=== PATIENT | male | born 2000 | race Caucasian/White ===

== ENCOUNTER → 2019-05-08 07:07 | Outpatient (BNVA) | payer MEDICAID, SELFPAY | PROVIDERS: PCP Nurse Practitioner Family; Visit Provider Psychiatry & Neurology Psychiatry | DX: F90.2 Attention-deficit hyperactivity disorder, combined type (principal) | CPT/HCPCS: 99214 ==

== ENCOUNTER → 2019-06-05 07:38 | Outpatient (BNVA) | payer MEDICAID, SELFPAY | PROVIDERS: PCP Nurse Practitioner Family; Visit Provider Psychiatry & Neurology Psychiatry | DX: F90.2 Attention-deficit hyperactivity disorder, combined type (principal) | CPT/HCPCS: 99213 ==

== ENCOUNTER → 2019-07-17 07:28 | Outpatient (BNVA) | payer MEDICAID, SELFPAY | PROVIDERS: PCP Nurse Practitioner Family; Visit Provider Psychiatry & Neurology Psychiatry | DX: F90.2 Attention-deficit hyperactivity disorder, combined type (principal) | CPT/HCPCS: 99213 ==

== ENCOUNTER 2019-09-20 19:05 | Emergency (ER) | payer MEDICAID, SELFPAY ==
[2019-09-20 19:17] VITALS: BP 114/65; PULSE 79; RESP 18; TEMP 36.7; O2SAT 98; BMI 23.0
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
== END 2019-09-20 20:12 | disposition home or self-care (01) ==
PROVIDERS: Emergency Provider Nurse Practitioner Family; PCP Nurse Practitioner Family
DX: S60.221A Contusion of right hand, initial encounter (principal); X58.XXXA Exposure to other specified factors, initial encounter
CPT/HCPCS: 12345; 73130; 99281; 99282

== ENCOUNTER 2019-09-23 10:40 | Emergency (ER) | payer MEDICAID, SELFPAY ==
[2019-09-23 10:44] VITALS: BMI 22.3
[2019-09-23 10:48] VITALS: BP 130/81; PULSE 106; RESP 16; TEMP 36.4; O2SAT 99
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
--- NOTE | 2019-09-23 11:07 | CT_ITS ---
WS: [id number] CT ABDOMEN AND PELVIS WITH CONTRAST HISTORY: RLQ abdominal pain, nausea, diarrhea TECHNIQUE: Imaging performed of the abdomen and pelvis with IV contrast. Single phase imaging of the abdomen. Coronal and sagittal reformats are submitted. All CT scans at [facility] use at least one of these dose optimization techniques: automated exposure control; mA and/or kV adjustment per patient size (includes targeted exams where dose is matched to clinical indication); or iterativ e reconstruction. IV CONTRAST: Omnipaque 300; 95 mL IV. Oral contrast: No DLP: 381.53 mGy.cm COMPARISON: None available. Lower thorax: Lung bases are clear. Heart is normal size. No hiatal hernia. Liver/biliary system: Normal size with no intrahepatic dilatation. Gallbladder: Normal. No gallstones or wall thickening. No pericholecystic fluid. Pancreas: Poorly visualized with mild motion artifact. Spleen: Normal. Adrenal glands: Normal. Right kidney: Mild fullness in the RIGHT renal pelvis. There is soft tissue thickening in the lower p ole and very mild dilatation of the renal pelvis and proximal ureter. Normal enhancement otherwise. Left kidney: Interpolar 9 mm cyst. Aorta: Normal. Lymphadenopathy: None. Free fluid: None. GI tract: Normal appendix. Moderate fecal retention and constipation. No wall thickening or obstructi on. Mild fluid distention of small bowel loops. Abdominal wall: Unremarkable abdominal wall. No hernia. Pelvis: Normal. Bones: Unremarkable. CT/CT abdomen pelvis w con* [id number] IMPRESSION: 1. Normal appendix. 2. Increased soft tissue thickening lower pole RIGHT kidney may be an area of infection or inflammation. There is no obstruction. Consider follow-up renal ul trasound for better evaluation of the renal pelvis. 3. No free fluid. 4. Mild constipation.
[2019-09-23 11:11] LABS: Basophils % 0.6 %; Eosinophils # 0.1 10^3/uL (0.0-0.8); Eosinophils % 1.8 %; Hematocrit 45.1 % (42.0-52.0); Hemoglobin 14.2 g/dL (11.7-16.6); Lymphocytes # 1.5 10^3/uL (1.5-6.5); Lymphocytes % 22.2 %; Mean Corpuscular HGB Conc 31.5 g/dL (30.0-36.0); Mean Corpuscular Volume 95.3 fL (80-94); Mean Platelet Volume 10.9 fL (7.4-10.4); Monocytes # 0.5 10^3/uL (0.2-0.9); Monocytes % 7.6 %; Neutrophils # 4.47 10^3/uL (1.8-8.0); Neutrophils % 67.6 %; Nucleated Red Blood Cells % 0 %; Platelet Count 222 10^3/cmm (130-400); Red Blood Count 4.73 10^6/uL (4.1-5.3); Red Cell Distribution Width 12.3 % (12.1-15.1); White Blood Count 6.6 10^3/uL (4.5-13.0)
[2019-09-23] MEDS: sodium chloride 0.9% 1,000 ML 999 ML IV (11:24)
[2019-09-23 11:28] LABS: Alanine Aminotransferase 13 U/L (0-41); Albumin Level 4.5 g/dL (3.5-5.2); Alkaline Phosphatase 86 IU/L (40-130); Aspartate Amino Transferase 18 U/L (0-40); Blood Urea Nitrogen 9 mg/dL (6-20); Calcium 9.3 mg/dL (8.5-10.5); Carbon Dioxide 26 mmol/L (22-29); Chloride 101 mmol/L (98-107); Globulin 2.9 g/dL (1.3-4.6); Glomerular Filtration Rate 123.2 mL/min (90-130); Glucose 84 mg/dL (65-115); Lipase 15 U/L (13-60); Osmolality Calculated 277 mOsm/kg (285-295); Sodium 136 mmol/L (136-145); Total Bilirubin 0.2 mg/dL (0.15-1.2); Total Protein 7.4 g/dL (6.6-8.7)
--- NOTE | 2019-09-23 11:33 | PC.NURSE ---
Pt to CT at this time via stretcher accompanied by CT staff x1
[2019-09-23] MEDS: iohexol 300 mg/mL 100 mL Btl IV (11:37)
[2019-09-23 11:46] LABS: Add Urine Microscopic? NO
[2019-09-23 11:54] LABS: Bilirubin Urine Neg (NEGATIVE); Blood Urine Neg (Negative); Glucose Urine UA Norm (Normal); Ketones Urine Negative (Negative); Leukocyte Esterase Urine Negative (Negative); Nitrate Urine Negative (Negative); Protein Urine Neg (Negative); Urine Appearance Clear (CLEAR); Urine Color Yellow (Yellow); Urobilinogen Urine Norm (Negative); pH Urine 6 (5-7)
[2019-09-23 13:06] VITALS: BP 126/75; PULSE 83; RESP 20; O2SAT 100
== END 2019-09-23 13:07 | disposition home or self-care (01) ==
PROVIDERS: Emergency Provider Physician Assistant; PCP Nurse Practitioner Family
DX: K59.00 Constipation, unspecified (principal)
CPT/HCPCS: 12345; 36415; 74177; 80053; 81003; 83690; 85025; 96360; 99283; J7030; Q9967

== ENCOUNTER → 2019-10-10 07:51 | Outpatient (BNVA) | payer MEDICAID, SELFPAY | PROVIDERS: PCP Nurse Practitioner Family; Visit Provider Psychiatry & Neurology Psychiatry | DX: F43.12 Post-traumatic stress disorder, chronic (principal); F90.2 Attention-deficit hyperactivity disorder, combined type | CPT/HCPCS: 99213 ==

== ENCOUNTER → 2019-12-26 07:17 | Outpatient (BNVA) | payer MEDICAID, SELFPAY | PROVIDERS: PCP Nurse Practitioner Family; Visit Provider Psychiatry & Neurology Psychiatry | DX: F90.2 Attention-deficit hyperactivity disorder, combined type (principal); Z79.899 Other long term (current) drug therapy | CPT/HCPCS: 99213 ==

== ENCOUNTER → 2020-02-19 11:38 | Outpatient (BNVA) | payer MEDICAID, SELFPAY | PROVIDERS: PCP Nurse Practitioner Family; Visit Provider Psychiatry & Neurology Psychiatry | DX: F90.2 Attention-deficit hyperactivity disorder, combined type (principal); F41.1 Generalized anxiety disorder; F43.12 Post-traumatic stress disorder, chronic | CPT/HCPCS: 99213 ==

== ENCOUNTER → 2020-04-05 07:56 | Outpatient (BNVA) | payer MEDICAID, SELFPAY | PROVIDERS: PCP Nurse Practitioner Family; Visit Provider Psychiatry & Neurology Psychiatry | DX: F90.2 Attention-deficit hyperactivity disorder, combined type (principal) | CPT/HCPCS: 99214 ==

== ENCOUNTER → 2020-04-29 14:01 | Outpatient (BNVA) | payer MEDICAID, SELFPAY | PROVIDERS: PCP Nurse Practitioner Family; Visit Provider Psychiatry & Neurology Psychiatry | DX: F90.2 Attention-deficit hyperactivity disorder, combined type (principal) | CPT/HCPCS: 99214 ==

== ENCOUNTER → 2020-05-27 08:02 | Outpatient (BNVA) | payer MEDICAID, SELFPAY | PROVIDERS: PCP Nurse Practitioner Family; Visit Provider Psychiatry & Neurology Psychiatry | DX: F90.2 Attention-deficit hyperactivity disorder, combined type (principal); R10.9 Unspecified abdominal pain | CPT/HCPCS: 99214 ==

== ENCOUNTER → 2020-06-17 08:19 | Outpatient (BNVA) | payer MEDICAID, SELFPAY | PROVIDERS: PCP Nurse Practitioner Family; Visit Provider Psychiatry & Neurology Psychiatry | DX: F90.2 Attention-deficit hyperactivity disorder, combined type (principal) | CPT/HCPCS: 99212 ==

== ENCOUNTER 2020-06-30 21:38 | Emergency (ER) | payer MEDICAID, SELFPAY ==
[2020-06-30 21:59] VITALS: BP 132/73; PULSE 66; RESP 18; TEMP 36.6; O2SAT 98; BMI 22.4
--- NOTE | 2020-06-30 22:25 | ED_ITS ---
HPI - General Adult General: Chief complaint: General Medical Stated complaint: AFTER 4 DAYS IN SUN BEGAN FEELING SICK, FAINTING Time Seen by Provider: 06/30/20 22:24 History of Present Illness: HPI narrative: Patient states he might of overdone it this last weekend and at work. Been working on the heat said he has been drinking plenty of fluid. He said he just felt weak since Sunday not have much energy feeling faint has not passed out. Denies any other problems. Quit taking his ADHD medicines about a month ago he said his been the happiest person over the last month and not having mental health problems. Onset (ago): day(s) Associated symptoms: Reports no associated symptoms; Deny chest pain, dyspnea, headache(s), nausea, rash or vomiting Review of Systems Narrative: Weakness Const: Denies: fever(s), chills or body aches Eyes: Denies: change in vision or blurry vision ENMT: Denies: throat pain or nasal congestion Card: Denies: chest pain or dyspnea on exertion Resp: Denies: dyspnea, productive cough or non-productive cough GI: Denies: abdominal pain, nausea or vomiting : Denies: difficulty urinating Musc: Denies: extremity pain Skin/Breast: Denies: rash Neuro: Denies: headache(s) Psych: Denies: anxiety or depression Nas/Lymph: Denies: easy bruising [facility] ED PFSH: Medical History (Updated 06/30/20 @ 22:52 by FERNANDO Balderas) Attention-deficit hyperactivity disorder, combined type Post-traumatic stress disorder, chronic PTSD (post-traumatic stress disorder) Physical Exam Const: COMMON NORMALS: no acute distress, average body habitus and patient or iented x3 HENMT: COMMON NORMALS: normocephalic HEAD & SCALP: normal to inspection and normocephalic FACE & SINUS: normal facial exam Eye: COMMON NORMALS: conjunctivae normal GENERAL EYE: appearance normal, both eyes and all related structures CONJUNCTIVA: Yes conjunctivae normal Neck/C-Spine: COMMON NORMALS: no JVD Chest: COMMONS NORMALS: normal inspection of the chest Resp: COMMON NORMALS: normal respiratory effort and clear to auscultation bilaterally AUSCULTATION: clear to auscultation bilaterally Cardio: COMMON NORMALS: no JVD, regular rate and regular rhythm RATE: regular rate RHYTHM: regular rhythm GI: COMMON NORMALS: Normal to inspection, nondistended, normoactive bowel sounds present Extremity: COMMON NORMALS: normal to inspection and full ROM Neuro: COMMON NORMALS: patient oriented x3 Course Vital Signs: Vital signs: Vital Signs Temperature 97.8 F 06/30/20 21:59 Pulse Rate 66 06/30/20 21:59 Respiratory Rate 18 06/30/20 21:59 Blood Pressure 132/73 06/30/20 21:59 Pulse Oximetry 98 06/30/20 21:59 Discharge Plan Discharge Patient Disposition: Home Clinical Impression: Cervical radiculopathy Condition: Stable Prescriptions: New prednisone 20 mg tablet 20 mg PO DAILY Qty: 7 RF: 0 Celebrex 100 mg capsule 100 mg PO BID Qty: 20 RF: 0 No Action azithromycin [Zithromax Z-Guillermo] 250 mg tablet See Rx Instructions PO .COMPLEX Qty: 6 RF: 0 promethazine-DM 6.25-15 mg/5 mL syrup 5 ml PO Q6H PRN (Reason: cough) 7 Days Qty: 118 RF: 0 loratadine [Claritin] 10 mg tablet 10 mg PO DAILY 30 Days Qty: 30 RF: 5 Discharge Orders: Discharge ED (Routine); Ordered 06/30/20 Ordered By: Chris Toribio Discharge Diet: Usual diet Discharge Activity: Increase activity as tolerated Patient Instructions: Cervical Radiculopathy (ED) Activity Restrictions/Additional Instructions: Follow-up with medical provider as directed. Take medications as prescribed. Return to the ER or your medical provider if condition worsens. Please read and understand discharge instructions. If any questions ask please. Alternate moist heat and ice to neck and shoulder area. Coding Level of Care Code ED Civilian Technician for Kiki Fwd Exam Comprehensive
[2020-06-30 23:19] LABS: Basophils # 0.1 10^3/uL (0.0-0.1); Basophils % 0.8 %; Eosinophils # 0.3 10^3/uL (0.0-0.8); Eosinophils % 3.3 %; Hematocrit 41.8 % (42.0-52.0); Hemoglobin 13.3 g/dL (11.7-16.6); Lymphocytes # 2.4 10^3/uL (1.5-6.5); Lymphocytes % 32.1 %; Mean Corpuscular HGB Conc 31.8 g/dL (30.0-36.0); Mean Corpuscular Hemoglobin 29.8 pg (28.0-34.0); Mean Corpuscular Volume 93.7 fL (80-94); Mean Platelet Volume 11.1 fL (7.4-10.4); Monocytes # 0.8 10^3/uL (0.2-0.9); Monocytes % 10.2 %; Neutrophils # 3.98 10^3/uL (1.8-8.0); Neutrophils % 53.3 %; Nucleated Red Blood Cells % 0 %; Platelet Count 209 10^3/cmm (130-400); Red Blood Count 4.46 10^6/uL (4.1-5.3); Red Cell Distribution Width 13.1 % (12.1-15.1); White Blood Count 7.5 10^3/uL (4.5-13.0)
[2020-06-30 23:33] LABS: Anion Gap 12.9 (5-19); Blood Urea Nitrogen 12 mg/dL (6-20); Calcium 8.8 mg/dL (8.5-10.5); Carbon Dioxide 26 mmol/L (22-29); Chloride 105 mmol/L (98-107); Glomerular Filtration Rate 123.2 mL/min (90-130); Glucose 80 mg/dL (65-115); Osmolality Calculated 289 mOsm/kg (285-295); Potassium 3.9 mmol/L (3.5-5.1); Sodium 140 mmol/L (136-145)
[2020-07-01 00:18] VITALS: BP 130/61; PULSE 59; RESP 15; TEMP 36.6; O2SAT 97
== END 2020-07-01 00:21 | disposition home or self-care (01) ==
PROVIDERS: Emergency Provider Nurse Practitioner Family
DX: M54.12 Radiculopathy, cervical region (principal); R53.1 Weakness
CPT/HCPCS: 80048; 85025; 99282

== ENCOUNTER → 2020-08-12 07:31 | Outpatient (BNVA) | payer MEDICAID, SELFPAY | PROVIDERS: PCP Nurse Practitioner; Visit Provider Psychiatry & Neurology Psychiatry | DX: F90.2 Attention-deficit hyperactivity disorder, combined type (principal) | CPT/HCPCS: 99212 ==

== ENCOUNTER 2020-08-30 15:35 | Emergency (ER) | payer MEDICAID, SELFPAY ==
[2020-08-30 16:43] VITALS: BP 108/62; PULSE 118; RESP 18; TEMP 36.7; O2SAT 96; BMI 23.7
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
--- NOTE | 2020-08-30 20:37 | PC.NURSE ---
pt states hes in pain. pt very 'hyper' trying to 'distract himself' from the pain.
[2020-08-30] MEDS: HYDROcodone-acetaminophen 5-325 mg Tablet 1 TAB PO (20:42)
[2020-08-30 21:34] VITALS: BP 121/74; PULSE 98; RESP 18; TEMP 36.8; O2SAT 99
== END 2020-08-30 21:00 | disposition home or self-care (01) ==
PROVIDERS: Emergency Provider Nurse Practitioner Family; PCP Nurse Practitioner
DX: S43.52XA Sprain of left acromioclavicular joint, initial encounter (principal); F17.200 Nicotine dependence, unspecified, uncomplicated; V19.9XXA Pedal cyclist (driver) (passenger) injured in unspecified traffic accident, initial encounter
CPT/HCPCS: 70450; 72125; 73030; 99283

== ENCOUNTER → 2020-09-28 07:29 | Outpatient (BNVA) | payer MEDICAID, SELFPAY | PROVIDERS: PCP Nurse Practitioner; Visit Provider Psychiatry & Neurology Psychiatry | DX: F90.2 Attention-deficit hyperactivity disorder, combined type (principal); G47.20 Circadian rhythm sleep disorder, unspecified type | CPT/HCPCS: 99214 ==

== ENCOUNTER → 2020-10-21 08:06 | Outpatient (BNVA) | payer MEDICAID, SELFPAY | PROVIDERS: PCP Nurse Practitioner; Visit Provider Psychiatry & Neurology Psychiatry | DX: F43.11 Post-traumatic stress disorder, acute (principal); F90.2 Attention-deficit hyperactivity disorder, combined type; G47.20 Circadian rhythm sleep disorder, unspecified type | CPT/HCPCS: 99214 ==

== ENCOUNTER → 2021-11-17 12:06 | Outpatient (BNVA) | payer MEDICAID, SELFPAY | PROVIDERS: PCP Nurse Practitioner; Visit Provider Nurse Practitioner Family | DX: Z11.52 Encounter for screening for COVID-19 (principal); J06.9 Acute upper respiratory infection, unspecified; R05.9 Cough, unspecified; J40 Bronchitis, not specified as acute or chronic | CPT/HCPCS: 80053 ==

== ENCOUNTER → 2021-11-25 13:07 | Outpatient (BNVA) | payer MEDICAID, SELFPAY | PROVIDERS: PCP Nurse Practitioner; Visit Provider Nurse Practitioner Family | DX: J40 Bronchitis, not specified as acute or chronic (principal); R05.9 Cough, unspecified | CPT/HCPCS: 71046 ==

== ENCOUNTER 2022-05-27 13:07 | Emergency (ER) | payer MEDICAID, SELFPAY ==
[2022-05-27 13:10] VITALS: BP 132/81; PULSE 78; RESP 21; TEMP 36.7; O2SAT 100; BMI 22.3
--- NOTE | 2022-05-27 13:34 | XRR_ITS ---
PROCEDURE INFORMATION: Exam: XR Abdomen Exam date and time: 05/27/2022 1:44 PM Age: 21 years old Clinical indication: Nausea and vomiting; Additional info: N/v pain TECHNIQUE: Imaging protocol: Radiologic exam of the abdomen. Views: 2 Views. Upright and supine views. COMPARISON: CT abdomen pelvis w con* [id number] 09/23/2019 11:27 AM FINDINGS: Gastrointestinal tract: Normal. No bowel dilation. Intraperitoneal space: Normal. No free air. Bones/joints: Unremarkable for age. XR/XR abdomen min 2V [id number] IMPRESSION: No acute finding.
--- NOTE | 2022-05-27 13:35 | W.ED.NAVMDI ---
HPI - Nausea/Vomiting/Diarrhea General: Chief complaint: General Medical Stated complaint: N/V Time Seen by Provider: 05/27/22 13:12 Source: patient Mode of arrival: EMS Limitations: no limitations History of Present Illness: Patient is a 21-year-old male who presents to ED today with a complaint of nausea and vomiting over the past 3 years. He states he will have nausea and vomiting every other day and states he will vomit up to 17 times in a day. He is reporting epigastric discomforts on these days as well. He states on days that he is asymptomatic (again states this is only every other day over the past 3 years) he will be javier of spades stating that he feels great and eats and drinks normally without any discomforts. He reportedly has never sought any form of examination for this stating that he does not like hospitals. No hematemesis. He states he continues to have normal bowel movements. No fevers. Denies alcohol and illicit drug use. He does smoke marijuana daily. Also some report of him accidentally taking a 25mg metoprolol thinking it was a medication to treat nausea. MD elicited complaint: nausea, vomiting and abdominal pain Associated nausea: Yes Associated abdominal pain: Yes Location of pain: Epigastric Pain consistency: intermittent Exacerbating factors: eating Relieving factors: none Associated symtoms: Reports nausea; Denies chest pain, dizziness, dysuria, fatigue, headache(s) or malaise Review of Systems Const: Denies: fever(s), chills, body aches, fatigue or malaise ENMT: Denies: throat pain or odynophagia Card: Denies: chest pain Resp: Denies: dyspnea GI: Reports: abdominal pain, nausea and vomiting; Denies: hematemesis, coffee ground emesis, diarrhea, GI cramping, change in bowel habits, hematochezia or melena : Denies: flank pain, dysuria or hematuria Musc: Denies: neck pain, back pain, extremity pain or joint pain Skin/Breast: Denies: rash Neuro: Denies: headache(s) or dizziness [facility] ED PFSH: Medical History Attention-deficit hyperactivity disorder, combined type Post-traumatic stress disorder, chronic PTSD (post-traumatic stress disorder) Surgical History History of myringotomy Family History Mother Diabetes Hypertension Grandmother COPD (chronic obstructive pulmonary disease) Hypertension Social History Smoking and tobacco status: never smoked Alcohol intake: current Alcohol intake frequency: holidays/special occasions only Adopted: No Lives independently: Yes Household members: significant other Marital status: Single Highest education level completed: High School Graduate service: No Current occupational status: unemployed Current gender identity: Male Special saroj needs: No Physical Exam Const: COMMON NORMALS: no acute distress, average body habitus, patient oriented x3, no limitations, healthy appearing, alert and well nourished HENMT: COMMON NORMALS: normocephalic and atraumatic HEAD & SCALP: normal to inspection, normocephalic and atraumatic Neck/C-Spine: COMMON NORMALS: full ROM, no lymphadenopathy, supple and no meningeal signs Chest: COMMONS NORMALS: normal inspection of the chest and normal palpation of entire chest wall Resp: COMMON NORMALS: normal respiratory effort and clear to auscultation bilaterally AUSCULTATION: clear to auscultation bilaterally Cardio: COMMON NORMALS: regular rate and regular rhythm RATE: regular rate RHYTHM: regular rhythm GI: COMMON NORMALS: Normal to inspection, nondistended, normoactive bowel sounds present, Soft to palpation, No hepatosplenomegaly present and no masses INSPECTION: Yes normal to inspection AUSCULTATION: Yes normoactive bowel sounds PALPATION: Yes Soft to palpation, Yes Tenderness to palpation present (GI) (mild epigastric tenderness), No Guarding due to palpation present (GI), No Rigid due to palpation and Yes No hepatosplenomegaly present : COMMON NORMALS: Yes no CVA tenderness BLADDER/KIDNEY EXAM: Yes no CVA tenderness Back/Pelvis: COMMON NORMALS: no CVA tenderness and thoracic and lumbar spine normal to inspection Extremity: COMMON NORMALS: normal to inspection GENERAL: Yes normal exam except as noted Neuro: ANA LUISA COMA SCALE: document [facility]CS findings Ana Luisa coma scale eye opening: Spontaneous [place] coma scale verbal response: Orientated [place] coma scale motor response: Obey commands Ana Luisa coma scale total score: 15 COMMON NORMALS: patient oriented x3 SENSORIUM/ORIENTATION: Yes alert MENINGEAL SIGNS: Yes no meningeal signs Skin: COMMON NORMALS: no rashes or lesions noted GENERAL SKIN EXAM: no rashes or lesions noted Course Vital Signs: Vital signs: Vital Signs Temperature 98.1 F 05/27/22 13:10 Pulse Rate 78 05/27/22 13:10 Respiratory Rate 21 H 05/27/22 13:10 Blood Pressure 132/81 05/27/22 13:10 Pulse Oximetry 100 05/27/22 13:10 Oxygen Delivery Me thod Room Air 05/27/22 13:10 MDM - Nausea/Vomiting/Diarrhea Medical Decision Making Patient did feel like GI cocktail helped here. Ultimately patient's symptoms have been present, according to him, for 3 years now. His vital signs are normal. Blood work overall is unremarkable. XR of his abdomen is normal. I do not see any need for emergent CT imaging based on length of symptoms. Recommend he follow-up with his primary care provider. We will go ahead and place a referral for general surgery/GI for further evaluation of chronic abdominal pains, nausea, and vomiting. Return to ED precautions given. Lab Data 05/27/22 13:45 05/27/22 13:45 Radiology Impressions Abdomen X-Ray 05/27/22 13:34 IMPRESSION: No acute finding. Laboratory Results WBC 13.6 10^3/uL (4.0-10.0) H 05/27/22 13:45 RBC 5.12 10^6/uL (4.1-5.3) 05/27/22 13:45 Hgb 15.3 g/dL (11.7-16.6) 05/27/22 13:45 Hct 46.3 % (42.0-52.0) 05/27/22 13:45 MCV 90.4 fl (80-94) 05/27/22 13:45 MCH 29.9 pg (28.0-34.0) 05/27/22 13:45 MCHC 33.0 g/dL (30.0-36.0) 05/27/22 13:45 RDW 12.3 % (12.1-15.1) 05/27/22 13:45 Plt Count 213 10^3/cmm (130-400) 05/27/22 13:45 MPV 10.8 fL (7.4-10.4) H 05/27/22 13:45 Neut % (Auto) 91.9 % 05/27/22 13:45 Lymph % (Auto) 3.3 % 05/27/22 13:45 [place] % (Auto) 4.0 % 05/27/22 13:45 Eos % (Auto) 0.1 % 05/27/22 13:45 Baso % (Auto) 0.3 % 05/27/22 13:45 Neut # (Auto) 12.53 10^3/uL (1.8-7.7) H 05/27/22 13:45 Lymph # (Auto) 0.5 10^3/uL (0.8-4.8) L 05/27/22 13:45 [place] # (Auto) 0.5 10^3/uL (0.2-0.9) 05/27/22 13:45 Eos # (Auto) 0.0 10^3/uL (0.0-0.8) 05/27/22 13:45 Baso # (Auto) 0.0 10^3/uL (0.0-0.1) 05/27/22 13:45 Nucleated RBC % (auto) 0 % 05/27/22 13:45 Nucleated RBCs # 0.0 /100WBC 05/27/22 13:45 Sodium 130 mmol/L (136-145) L 05/27/22 13:45 Potassium 3.9 mmol/L (3.5-5.1) 05/27/22 13:45 Chloride 96 mmol/L (98-107) L 05/27/22 13:45 Carbon Dioxide 24 mmol/L (22-29) 05/27/22 13:45 Anion Gap 13.9 (5-19) 05/27/22 13:45 BUN 14 mg/dL (6-20) 05/27/22 13:45 Creatinine 1.0 mg/dL (0.7-1.2) 05/27/22 13:45 GFR Calculation 93.4 mL/min (90-130) 05/27/22 13:45 Glucose 89 mg/dL (65-115) 05/27/22 13:45 Calculated Osmolality 270 mOsm/kg (285-295) L 05/27/22 13:45 Calcium 9.2 mg/dL (8.5-10.5) 05/27/22 13:45 Total Bilirubin 0.6 mg/dL (0.15-1.2) 05/27/22 13:45 AST 19 U/L (0-40) 05/27/22 13:45 ALT 23 U/L (0-41) 05/27/22 13:45 Alkaline Phosphatase 55 U/L (40-130) 05/27/22 13:45 Total Protein 7.4 g/dL (6.6-8.7) 05/27/22 13:45 Albumin 4.7 g/dL (3.5-5.2) 05/27/22 13:45 Globulin 2.7 g/dL (1.3-4.6) 05/27/22 13:45 Lipase 18 U/L (13-60) 05/27/22 13:45 Urine Color Yellow (Yellow) 05/27/22 13:54 Urine Appearance Clear (CLEAR) 05/27/22 13:54 Urine pH 9 (5-7) H 05/27/22 13:54 Ur Specific [place] 1.010 (1.005-1.030) 05/27/22 13:54 Urine Protein Neg (Negative) 05/27/22 13:54 Urine Glucose (UA) Norm (Normal) 05/27/22 13:54 Urine Ketones Negative (Negative) 05/27/22 13:54 Urine Blood Neg (Negative) 05/27/22 13:54 Urine Nitrate Negative (Negative) 05/27/22 13:54 Urine Bilirubin Neg (Negative) 05/27/22 13:54 Prot Sulfosalicylic Acd Negative (Negative) 05/27/22 13:54 Urine Urobilinogen Norm mg/dL (Negative) 05/27/22 13:54 Ur Leukocyte Esterase Negative (Negative) 05/27/22 13:54 Discharge Plan Discharge Patient Disposition: Home Clinical Impression: Chronic vomiting Condition: Stable Prescriptions: New ondansetron 4 mg tablet,disintegrating 4 mg PO Q8H PRN (Reason: nausea and vomiting) Qty: 14 0RF No Action mupirocin 2 % ointment 1 applic topical BID 10 Days Qty: 15 0RF Rx Instructions: apply to sores amoxicillin-pot clavulanate 875-125 mg tablet 1 tab PO BID 10 Days Qty: 20 0RF Discharge Orders: Discharge ED (Routine); Ordered 05/27/22 Ordered By: Joi Kwok Referrals: Imani Monsivais, COMPUTER SYSTEMS AUDITOR-C [Primary Care Provider] - Activity Restrictions/Additional Instructions: As we discussed I will have case management set you up with a general surgery/GI appointment for further evaluation of your chronic nausea, vomiting, and abdominal pains. You may use the prescription as needed for nausea/vomiting. Coding Level of Care Code ED Sensitometrist for Kiki Marie
[2022-05-27 14:02] LABS: Add Urine Microscopic? NO; Charge for UA Resulting for Rev
[2022-05-27] MEDS: lidocaine 2% viscous 15 ML, aluminum-mag hydrox-simethicon 30 ML, sucralfate oral liq 1 GM PO (14:02)
[2022-05-27 14:04] LABS: Basophils % 0.3 %; Eosinophils % 0.1 %; Hematocrit 46.3 % (42.0-52.0); Hemoglobin 15.3 g/dL (11.7-16.6); Lymphocytes # 0.5 10^3/uL (0.8-4.8); Lymphocytes % 3.3 %; Mean Corpuscular Hemoglobin 29.9 pg (28.0-34.0); Mean Corpuscular Volume 90.4 fl (80-94); Mean Platelet Volume 10.8 fL (7.4-10.4); Monocytes # 0.5 10^3/uL (0.2-0.9); Neutrophils # 12.53 10^3/uL (1.8-7.7); Neutrophils % 91.9 %; Nucleated Red Blood Cells % 0 %; Platelet Count 213 10^3/cmm (130-400); Red Blood Count 5.12 10^6/uL (4.1-5.3); Red Cell Distribution Width 12.3 % (12.1-15.1); White Blood Count 13.6 10^3/uL (4.0-10.0)
[2022-05-27 14:17] LABS: Bilirubin Urine Neg (Negative); Blood Urine Neg (Negative); Glucose Urine UA Norm (Normal); Ketones Urine Negative (Negative); Leukocyte Esterase Urine Negative (Negative); Nitrate Urine Negative (Negative); Protein Urine Neg (Negative); Sulfosalicylic Acid Urine Negative (Negative); Urine Appearance Clear (CLEAR); Urine Color Yellow (Yellow); Urobilinogen Urine Norm (Negative); pH Urine 9 (5-7)
[2022-05-27 14:32] LABS: Alanine Aminotransferase 23 U/L (0-41); Albumin Level 4.7 g/dL (3.5-5.2); Alkaline Phosphatase 55 U/L (40-130); Anion Gap 13.9 (5-19); Aspartate Amino Transferase 19 U/L (0-40); Blood Urea Nitrogen 14 mg/dL (6-20); Calcium 9.2 mg/dL (8.5-10.5); Carbon Dioxide 24 mmol/L (22-29); Chloride 96 mmol/L (98-107); Globulin 2.7 g/dL (1.3-4.6); Glomerular Filtration Rate 93.4 mL/min (90-130); Glucose 89 mg/dL (65-115); Lipase 18 U/L (13-60); Osmolality Calculated 270 mOsm/kg (285-295); Potassium 3.9 mmol/L (3.5-5.1); Sodium 130 mmol/L (136-145); Total Bilirubin 0.6 mg/dL (0.15-1.2); Total Protein 7.4 g/dL (6.6-8.7)
[2022-05-27] MEDS: LORazepam 2 mg/mL INJ 1 mL 0.5 MG IVP (16:02)
[2022-05-27] MEDS: metoclopramide 5 mg/mL SDV 2 mL 10 MG IVP (16:03)
[2022-05-27 16:45] VITALS: BP 112/65
--- NOTE | 2022-05-29 11:43 | DCPLANNER ---
Addendum entered by Mellisa Granados 07/03/22 11:28: Patient had a follow up appointment at general surgery - patient did not attend appointment. Addendum entered by Mellisa Granados 06/02/22 09:38: Patient has a follow up appointment scheduled for Monday, June 27, 2022 at 9:[address] Ng at general surgery. Original Note: web manager had message to schedule a follow up appointment for patient with general surgery. web manager sent patients information to the front office staff at general surgery. Patients information will be printed and reviewed. Clinic will call patient with appointment information.
== END 2022-05-27 16:47 | disposition home or self-care (01) ==
PROVIDERS: Emergency Provider Physician Assistant; PCP Nurse Practitioner
DX: R11.10 Vomiting, unspecified (principal)
CPT/HCPCS: 74019; 80053; 81003; 83690; 85025; 96374; 96375; 99284; J2060; J2765

== ENCOUNTER 2022-11-19 16:17 | Emergency (ER) | payer MEDICAID, SELFPAY ==
[2022-11-19 16:22] VITALS: BP 120/76; PULSE 73; RESP 16; TEMP 36.5; O2SAT 97; BMI 20.9
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
[2022-11-19] MEDS: ketorolac 60 mg/2 mL INJ IM (17:52)
[2022-11-19] MEDS: orphenadrine 30 mg/mL Inj 2 mL 60 MG IM (17:54)
== END 2022-11-19 20:15 | disposition home or self-care (01) ==
PROVIDERS: Emergency Provider Physician Assistant; PCP Nurse Practitioner
DX: S00.83XA Contusion of other part of head, initial encounter (principal); S00.03XA Contusion of scalp, initial encounter; S20.219A Contusion of unspecified front wall of thorax, initial encounter; Y04.2XXA Assault by strike against or bumped into by another person, initial encounter; Y07.040 Female partner, current, perpetrator of maltreatment and neglect
CPT/HCPCS: 70486; 71250; 96372; 99284; J1885; J2360

== ENCOUNTER → 2023-03-29 13:43 | Outpatient (BNVA) | payer MEDICAID, SELFPAY | PROVIDERS: PCP Nurse Practitioner; Visit Provider Family Medicine | DX: M79.641 Pain in right hand (principal) | CPT/HCPCS: 73130 ==

== ENCOUNTER 2023-10-26 09:55 | Inpatient (IN) | payer MEDICARE, SELFPAY ==
[2023-10-26 09:56] VITALS: BP 143/84; PULSE 89; RESP 17; TEMP 36.5; O2SAT 99; BMI 22.3
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
[2023-10-26 10:18] LABS: Basophils % 0.8 %; Eosinophils # 0.1 10^3/uL (0.0-0.8); Eosinophils % 1.5 %; Hematocrit 42.4 % (37-53); Lymphocytes # 1.3 10^3/uL (0.8-4.8); Lymphocytes % 25.5 %; Mean Corpuscular Hemoglobin 29.5 pg (27-33); Mean Corpuscular Volume 89.3 fl (82-101); Monocytes # 0.3 10^3/uL (0.2-0.9); Monocytes % 6.5 %; Neutrophils # 3.44 10^3/uL (1.8-7.7); Neutrophils % 65.5 %; Nucleated Red Blood Cells % 0 %; Platelet Count 226 10^3/cmm (157-399); Red Blood Count 4.75 10^6/uL (3.85-5.65); Red Cell Distribution Width 11.9 % (12.1-15.1); White Blood Count 5.25 10^3/uL (3.29-11.43)
--- NOTE | 2023-10-26 10:19 | PC.PHAR ---
[facility] states pt has no current maintenance medications
[2023-10-26 10:35] LABS: Alanine Aminotransferase 17 U/L (0-41); Albumin Level 4.7 g/dL (3.5-5.2); Alkaline Phosphatase 51 U/L (40-130); Anion Gap 12.9 (5-19); Aspartate Amino Transferase 22 U/L (0-40); Blood Urea Nitrogen 16 mg/dL (6-20); Calcium 9.3 mg/dL (8.5-10.5); Carbon Dioxide 26 mmol/L (22-29); Chloride 103 mmol/L (98-107); Creatinine Clr Calc Pharmacy 132.8451; Globulin 2.7 g/dL (1.3-4.6); Glomerular Filtration Rate 103.7 mL/min (90-130); Glucose 107 mg/dL (65-115); Osmolality Calculated 288 mOsm/kg (285-295); Potassium 3.9 mmol/L (3.5-5.1); Sodium 138 mmol/L (136-145); Total Bilirubin 0.3 mg/dL (0.15-1.2); Total Protein 7.4 g/dL (6.6-8.7)
[2023-10-26 10:36] LABS: Acetaminophen < 5.0 ug/mL (10-30); Alcohol Level < 10 mg/dL (0-10); Salicylate < 0.3 mg/dL (3-10)
[2023-10-26 11:12] VITALS: BP 135/84; PULSE 77; O2SAT 97
[2023-10-26 11:13] VITALS: BP 135/84; PULSE 77; O2SAT 97
[2023-10-26 11:22] VITALS: BP 148/83; PULSE 83; RESP 18; TEMP 36.6; O2SAT 98
[2023-10-26 11:31] LABS: Amphetamines Screen Urine Negative (Negative); Cocaine Screen Urine Negative (Negative); PCP Screen Urine Negative (Negative); THC Screen Urine Positive (Negative)
[2023-10-26 11:33] LABS: Barbiturates Screen Urine Negative (Negative); Benzodiazepines Screen Urine Negative (Negative); Opiate Screen Urine Negative (Negative)
[2023-10-26] MEDS: hyDROXYzine 25 mg Capsule 50 MG PO (12:48)
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
[2023-10-26 14:00] VITALS: BP 110/66; PULSE 84; RESP 18; TEMP 36.9; O2SAT 96
[2023-10-26] MEDS: OLANZapine 5 mg ODT PO (17:27)
--- NOTE | 2023-10-26 17:28 | PC.NURSE ---
PT CAME UP TO THIS NURSE REQUESTING PRN MEDICATION FOR ANXIETY. THIS NURSE PROVIDED PRN ZYPREXA 5MG. PRN. PT THEN STATED I HAVE AN EATING DISORDER BY THE WAY. THIS NURSE REQUESTED THAT PT EXPLAIN WHAT HE MEANS. 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 PT WOULD NOT EXPLAIN ANY FURTHER.
[2023-10-26 20:32] VITALS: BP 96/58; PULSE 60; RESP 16; TEMP 36.7; O2SAT 97
[2023-10-27 05:50] VITALS: BP 114/68; PULSE 64; RESP 16; TEMP 36.4; O2SAT 99
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
[2023-10-27 14:00] VITALS: BP 118/66; PULSE 83; RESP 16; TEMP 36.9; O2SAT 96
[2023-10-27] MEDS: prazosin 1 mg Capsule 2 MG PO (20:34)
[2023-10-27 21:36] VITALS: BP 118/83; PULSE 76; RESP 18; TEMP 36.8; O2SAT 95
[2023-10-27] MEDS: trazodone 50 mg Tablet PO (21:42)
[2023-10-28 06:00] VITALS: BP 118/67; PULSE 80; RESP 16; O2SAT 97
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
[2023-10-28] MEDS: acetaminophen 325 mg Tablet 650 MG PO (13:17)
[2023-10-28 14:00] VITALS: BP 112/66; PULSE 90; RESP 18; TEMP 36.8; O2SAT 97
[2023-10-28] MEDS: OLANZapine 5 mg ODT PO (18:26)
--- NOTE | 2023-10-28 18:30 | PC.NURSE ---
PT IS AGITATED ABOUT HIS FAMILY AND IS WORRIED ABOUT THEIR SAFETY BECAUSE SIGNIFICANT OTHER DID NOT ANSWER PHONE AFTER MULTIPLE PHONE CALLS AND THEN WHEN DID ANSWER APPEARED TO BE IN A FOUL MOOD. PT IS COOPERATIVE WITH STAFF AND RECEIVED PRN ZYPREXA 5MG SUBLINGUAL FOR AGITATION.
--- NOTE | 2023-10-28 19:52 | P.NPUPN_ITS ---
Subjective NPU 2 Subjective: 23-year-old male admitted with suicidal ideation with a history of ADHD and depression. The patient had reported that he had been off of his ADHD medicine for greater than 4 years. He had also reported that he had struggled with staying on task. He had reported that he was impulsive and struggled with making good decisions. He had reported that he had a history of PTSD with nightmares and flashbacks. He reported that he became very frustrated at times and often would say things and do things that would get him in trouble. He had reported some motivation to resuming medications for treating ADHD. The patient had endorsed priapism lasting approximately 1-1/2 hours after taking prazosin and trazodone last night. Mental Status Exam 2 MSE Comments: This is a slender well-developed white male in hospital scrubs with adequate grooming and fair eye contact. No abnormal movements except for mild psychomotor retardation. He was cooperative with exam in mild distress. Speech was more normal rate and volume. Mood described as great. His affect mostly euthymic. Thought process was mostly organized. Thought content: Patient denied suicidal or homicidal ideation. There were no delusions reported or noted, he did not report auditory or visual hallucinations. The patient reported occasional feelings of helplessness, hopelessness, and worthlessness when he is upset. He also mentioned having thoughts of suicide when he is angry, but these thoughts do not persist for long periods. He denied any current suicidal ideation or intent. He denied any auditory or visual hallucinations. Attention and concentration were intact and his recent and remote memory appeared mostly reliable, but none were formally tested. He is alert and oriented x 3. Insight and judgment are limited. Impulse control is impaired. Vitals/I&O/Wt Last Vital Signs Temp 98.3 F 10/28/23 14:00 Pulse 90 10/28/23 14:00 Resp 18 10/28/23 14:00 BP 112/66 10/28/23 14:00 Pulse Ox 97 10/28/23 14:00 O2 Del Method Room Air 10/28/23 06:00 Weight last 48 hrs Weight 70.874 kg Data NPU 10/26/23 10:13 10/26/23 10:13 A&P Assessment and plan (1) Suicidal ideation: (2) Attention-deficit hyperactivity disorder, combined type: (3) Acute posttraumatic stress disorder: (4) Homicidal ideations: Plan This is a 23-year-old white man with a history of trauma, ADHD and inpatient and outpatient treatment but mostly outpatient he had discontinued his medication well 3 years ago because his significant other had suggested he might be better without it who returns reporting that the medication helped him stay on track. The patient has a history of ADHD and has been on various medications for it. He stopped taking his medication due to perceived side effects and at the suggestion of his partner. He reported that his mood swings have worsened since discontinuing his medication. He also reported occasional feelings of helplessness, hopelessness, and worthlessness when he is upset. He also mentioned having thoughts of suicide when he is angry, but these thoughts do not persist for long periods. He denied any current suicidal ideation or intent, but he presented with an affidavit. He reported hearing voices at a specific location, but did not report any visual hallucinations. 1. Discontinue Trazodone and Prazosin due to concerns of priapism. Consider use of SSRI to target PTSD symptoms, add low dose stimulant to target adhd symptoms. Patient reported previous improvement in adhd symptoms on vyvanse 60mg daily. 2. Continue every 15 minute checks for safety. 3. Encourage individual, group and milieu therapies. 4. Obtain collateral information. 5. Encourage sober living treatment after discharge at the highest level of care to which he is willing to commit. Unsure whether he is able to return to their facility. Involuntary Hold Information 2 96 Hour Hold: 96 Hour Involuntary Admission: No Attestations NPU 2 Medical Necessity Statement*: Inpatient hospitalization is medically necessary and the clinically appropriate intervention at this time. We will monitor medications and make changes as indicated. Patient will be in the hospital for over two midnights. The patient's likely length of stay is 3-5 days. Coding Level of Care Code Acute Code for [facility] Diagnoses Suicidal ideation R45.851 Attention-deficit hyperactivity disorder, combined type F90.2 Acute posttraumatic stress disorder F43.11 Homicidal ideations R45.850
[2023-10-28] MEDS: hyDROXYzine 25 mg Capsule 50 MG PO (20:49)
[2023-10-28] MEDS: doxepin 25 mg Capsule PO (20:49)
[2023-10-28 22:00] VITALS: BP 125/77; PULSE 85; RESP 18; TEMP 36.7; O2SAT 99
[2023-10-29 06:00] VITALS: BP 109/76; PULSE 70; RESP 16; TEMP 36.4; O2SAT 97
[2023-10-29 13:42] VITALS: BP 118/74; PULSE 87; RESP 18; TEMP 36.9; O2SAT 100
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
[2023-10-29 15:14] VITALS: BP 118/74; PULSE 87; RESP 18; TEMP 36.9; O2SAT 100
--- NOTE | 2023-10-29 16:14 | DCPLANNER ---
IMM was printed and explained to pt and a copy was placed in pts file.
== END 2023-10-29 16:35 | disposition home or self-care (01) | DRG 886 ==
LOC: ER 10:22 → NP 10:57
PROVIDERS: Admitting Provider Psychiatry & Neurology Psychiatry; Emergency Provider Physician Assistant; PCP Nurse Practitioner; Visit Provider Psychiatry & Neurology Psychiatry
DX: F90.2 Attention-deficit hyperactivity disorder, combined type (principal); R45.851 Suicidal ideations; R45.850 Homicidal ideations; Z62.810 Personal history of physical and sexual abuse in childhood; F43.12 Post-traumatic stress disorder, chronic; F17.210 Nicotine dependence, cigarettes, uncomplicated; F43.11 Post-traumatic stress disorder, acute
CPT/HCPCS: 36415; 80053; 80306; 80307; 85025; 97150; 97165; 99285

== ENCOUNTER 2023-11-27 23:13 | Emergency (ER) | payer SELFPAY ==
[2023-11-27 23:25] VITALS: BP 105/53; PULSE 116; RESP 16; TEMP 36.3; O2SAT 100
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
[2023-11-28 01:04] VITALS: BP 121/66; PULSE 67; O2SAT 97
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
[2023-11-28 03:00] VITALS: BP 102/50; PULSE 59; O2SAT 98
[2023-11-28 03:09] VITALS: BP 92/56; PULSE 61; O2SAT 97
== END 2023-11-28 03:11 | disposition home or self-care (01) ==
PROVIDERS: Emergency Provider Emergency Medicine; PCP Nurse Practitioner
DX: S09.90XA Unspecified injury of head, initial encounter (principal); Y04.0XXA Assault by unarmed brawl or fight, initial encounter
CPT/HCPCS: 70450; 72125; 99284

== ENCOUNTER → 2024-03-14 08:58 | Outpatient (BNVA) | payer SELFPAY | PROVIDERS: PCP Nurse Practitioner Family; Visit Provider Orthopaedic Surgery | DX: S61.412A Laceration without foreign body of left hand, initial encounter (principal); S66.822A Laceration of other specified muscles, fascia and tendons at wrist and hand level, left hand, initial encounter; W26.8XXA Contact with other sharp object(s), not elsewhere classified, initial encounter | CPT/HCPCS: 73130 ==

== ENCOUNTER → 2024-12-12 11:31 | Outpatient (BNVA) | payer SELFPAY | PROVIDERS: PCP Nurse Practitioner Family; Visit Provider Nurse Practitioner Family | DX: G43.909 Migraine, unspecified, not intractable, without status migrainosus (principal) | CPT/HCPCS: 80053; 83735; 84443; 85025 ==